=== PATIENT | male | born 1965 | race Caucasian/White ===

== ENCOUNTER → 2024-10-07 07:59 | Outpatient (REF) | payer OTHER, SELFPAY | LOC: RCS 07:59 | PROVIDERS: ATTENDING PHYSICIAN Internal Medicine Cardiovascular Disease; FAMILY PHYSICIAN Family Medicine | DX: R07.9 Chest pain, unspecified (principal) | CPT/HCPCS: 93017; 93350 ==

== ENCOUNTER → 2025-09-07 18:46 | Outpatient (REF) | payer OTHER, SELFPAY | LOC: PAVMRI 18:46 | PROVIDERS: ATTENDING PHYSICIAN Student in an Organized Health Care Education/Training Program; FAMILY PHYSICIAN Family Medicine | DX: M25.572 Pain in left ankle and joints of left foot (principal) | CPT/HCPCS: 73721 ==